=== PATIENT | female | born 1955 | race Caucasian/White ===

== ENCOUNTER 2024-11-03 12:36 | Outpatient (CLI) | payer OTHER ==
--- NOTE | 2024-11-04 08:13 | RADIOLOGY REPORT ---
CLINICAL INDICATION: PAIN IN LEFT KNEE TECHNIQUE: Multiplanar, multisequence MRI of the left knee was performed contrast. Contrast: None. COMPARISON: None FINDINGS: Joint space and synovium: There is moderate knee joint effusion. Mild synovitis. Bones and articular cartilage: There is bandlike T2 hyperintensity in the medial tibial plateau with a low signal intensity focus on the T1 weighted images, consistent with a subchondral insufficiency f racture. There is bone marrow edema in the medial femoral condyle and medial tibial plateau. The al ignment is normal. Patellofemoral articular cartilage is intact. Medial and lateral tibiofemoral ar ticular cartilage is maintained. There are lateral compartment osteophytes. Menisci: There is a radial tear in the posterior horn of the medial meniscus. There is intrasubstance degeneration of the anterior and posterior horn of the lateral meniscus. There is a tear in the pos terior horn of the lateral meniscus. Tendons and ligaments: The tendons in the posterior knee are intact. The extensor mechanism is inta ct. The anterior cruciate ligament is intact. The posterior cruciate ligament is intact. The m edial collateral ligament and the lateral collateral ligament stabilizing complex are intact. The clive otibial band is intact. Muscles: Regional muscles are preserved in bulk and signal characteristics. Other: There is a 1.3 cm T2 hyperintense lesion in the deep subcutaneous tissues of the leg which may represent a lymph node. IMPRESSION: 1. Subchondral insufficiency fracture in the medial tibial plateau of the left knee. 2. Bone marrow edema in the medial femoral condyle and medial tibial plateau. 3. Radial tear in the posterior horn of the medial meniscus. 4. Tear in the posterior horn of the lateral meniscus. 5. Moderate knee joint effusion. 6. Mild synovitis.
== END 2024-11-03 23:59 | disposition home or self-care (01) ==
LOC: MRI02 12:36
PROVIDERS: ATTEND Family Medicine Sports Medicine
DX: S82.142A Displaced bicondylar fracture of left tibia, initial encounter for closed fracture (principal); S83.242A Other tear of medial meniscus, current injury, left knee, initial encounter; S83.282A Other tear of lateral meniscus, current injury, left knee, initial encounter; M17.12 Unilateral primary osteoarthritis, left knee; M77.11 Lateral epicondylitis, right elbow; M25.521 Pain in right elbow; M25.562 Pain in left knee; M25.522 Pain in left elbow; M25.462 Effusion, left knee; M65.98 Unspecified synovitis and tenosynovitis, other site; R60.0 Localized edema; M25.762 Osteophyte, left knee; M25.862 Other specified joint disorders, left knee; X58.XXXA Exposure to other specified factors, initial encounter; Y93.89 Activity, other specified; Y92.89 Other specified places as the place of occurrence of the external cause; Y99.8 Other external cause status
CPT/HCPCS: 73721